=== PATIENT | male | born 1970 | race Caucasian/White ===

== ENCOUNTER 2018-01-08 09:48 | Day surgery (SDC) | payer BC ==
[~2018-01-08] VITALS: Ht 177.8 cm; Wt 79.0 kg
[~2018-01-08 09:48] MED LIST: ALBU90OI6 INH; AMIT25 PO; ATOR10 PO; CITA20 PO; CLIN150 PO; CLON.2 PO; CYCL10 PO; DIPH50 PO; DOCU100 PO; DULO30 PO; DULO60 PO; IBUP800 PO; IBUPROFEN200 MG PO; LISI20 PO; METO100ER PO; Multiple Vitam1 EAC1 PO; OMEP20ER PO; OMEP40CA12 PO; OMEPRAZOLE MAGN20 MG PO; TRAM50 PO; VITAMIN B12-FO1 EACH PO; VITAMIN D32000 UNIT PO
[2018-01-08] MEDS ORDERED: TRAM50 (11:22)
[2018-01-08] MEDS ORDERED: ALLEGRA ALLERG180 MG (11:22)
== END 2018-01-08 12:23 | disposition home or self-care (01) ==
LOC: ORSCSDS 09:48
PROVIDERS: Internal Medicine Gastroenterology
PROC: 0DBN8ZX Excision of Sigmoid Colon, Via Natural or Artificial Opening Endoscopic, Diagnostic (ICD-10-PCS; principal; 2018-01-08 11:15)
DX: R10.31 Right lower quadrant pain (principal); Z83.71 Family history of colonic polyps; K59.00 Constipation, unspecified; K64.8 Other hemorrhoids; I10 Essential (primary) hypertension; J45.909 Unspecified asthma, uncomplicated; E78.5 Hyperlipidemia, unspecified; Z79.899 Other long term (current) drug therapy
CPT/HCPCS: 88305; J1980; J7120